=== PATIENT | male | born 1995 | race Hispanic/Latino ===

== ENCOUNTER 2017-11-10 09:00 | Emergency (ER) | payer BC, OTHER, SELFPAY ==
[2017-11-10] MEDS ORDERED: Insulin Regular 300 UNITS/3 ML VIAL ONE (09:09)
[2017-11-10 09:21] LABS: CO2 Tension 181.3 mmHg (35.0-45.0); pH, Arterial 6.67 (7.35-7.45)
[2017-11-10 09:24] LABS: Actual Bicarbonate (HCO3a) 20.3 mEq/L (22-26); Base Excess (BEa) -19.1 mEq/L (0 (+/-) 2.5); Hematocrit-ABG 36.1 % (34.0-44.0); Hemoglobin (Hb) 12.4 g/dL (11.4-15.4); O2 Tension (PaO2) 66.3 mmHg (80.0-100.0)
[2017-11-10 09:25] LABS: Base Excess-Venous -24.1 mmol/L (0 (+/- 2.5)); Bicarbonate (HCO3v) 16.6 mmol/L (1.0-85.0); CO2 Tension (PvCO2) 164.7 mmHg (41.0-51.0); Calcium, Ionized 1.56 mmol/L (1.12-1.32); Hemoglobin - Calc 13.8 g/dL (12.0-18.0); Lactate 15.84 mmol/L (0.50-2.20); Potassium 8.3 mmol/L (3.4-4.7); T. Carbon Dioxide 21.6 mmol/L (1.0-85.0); pH (Venous) 6.611 (7.35-7.45); vO2 Saturation-calc 10.8 % (94-98)
[2017-11-10 09:25] LABS: Analyzer IN Cardio ER; Calcium, Ionized 1.4 mmol/L (1.12-1.30); Puncture Site FEM
[2017-11-10 09:26] LABS: Albumin 2.5 g/dL (3.5-5.0)
[2017-11-10 09:26] LABS: ALV-art Gradient 420.075 (0-20)
[2017-11-10 09:27] LABS: Calcium 11.7 mg/dL (7.8-10.44); Chloride 108 mmol/L (98-107); INR-International Normal Ratio 1.9; Prothrombin Time 22.5 SEC (12.0-14.7); Sodium 146 mmol/L (136-145)
[2017-11-10 09:28] LABS: PTT 101.9 SEC (22.9-36.1)
[2017-11-10 09:29] LABS: Globulin 2.5 g/dL (2.4-3.5)
[2017-11-10 09:30] LABS: Bilirubin, Total 0.3 mg/dL (0.2-1.2)
[2017-11-10 09:35] LABS: Potassium 6.9 mmol/L (3.5-5.1)
[2017-11-10 09:36] LABS: Carbon Dioxide Less than 8 mmol/L (22-29); Glucose 543 mg/dL (70-105)
[2017-11-10 09:43] LABS: ALT (SGPT) 209 U/L (8-55); AST (SGOT) 255 U/L (5-34); Alkaline Phosphatase 70 U/L (Less than 750); BUN (Urea Nitrogen) 16 mg/dL (8.9-20.6); Calc. Creatinine Clearance 0 mL/min (70-130); Estimated GFR-MDRD 50
[2017-11-10 09:44] LABS: Alcohol Less than 10 mg/dL (Less than 10); Lipase 63 U/L (8-78)
[2017-11-10 09:45] LABS: Band 16 % (5-11); Hemoglobin 13.8 g/dL (14.0-18.0); Lymphocytes 47 % (28-48); MDiff Complete? YES; Mean Corpuscular HGB CONC 31.3 g/dL (32.0-36.0); Mean Corpuscular Hemoglobin 29.2 pg (25.0-35.0); Mean Corpuscular Volume 93.1 fl (77.0-87.0); Mean Platelet Volume 10.2 fL (7.4-10.4); Metamyelocyte 2 % (0-0); Monocytes 3 % (0-4); Neutrophil 32 % (31-61); PLT Morphology Comment PLT clumps seen-LOW; Platelet Count 96 thou/uL (130-400); RBC Distribution Width 13.6 % (11.5-14.5); Red Blood Cell (RBC) Count 4.74 mill/uL (4.00-5.20); White Blood Cell (WBC) Count 37.5 thou/uL (4.8-10.8)
--- NOTE | 2017-11-10 09:47 | RAD ---
PORTABLE CHEST: DATE: 11/10/17. TIME: 8:00 a.m. COMPARISON: Comparison is made to an exam performed at 7:44 a.m. FINDINGS: Exam is limited due to poor positioning. The right lateral chest is not included on the film. A left chest tube has been placed since the prior exam. The tip overlies the left apex. A pleural surface is not definitely identified; however, there are no lung markings seen in the perip mayte of the left lung and I cannot exclude a persistent left pneumothorax. ET tube and NG tube are in place. The NG tube has been advanced and the tip now overlies the left up per quadrant. There has been reduction in the gaseous distention of the stomach. IMPRESSION: Overall poor quality of the film. A small peripheral left pneumothorax is not excluded. Recommend f kate. POS: [facility]
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
[2017-11-10 11:55] LABS: Bilirubin Negative (Negative); Blood, Urine Large (Negative); Clarity TURBID (Clear); Glucose, Urine (Dipstick) Negative (Negative); Leukocyte Negative (Negative); Nitrite Negative (Negative); Protein, Urine (Dipstick) 100 mg/dL (Neg-Trace); Specific Gravity, Urine 1.026 (1.002-1.036); Urobilinogen 0.2 mg/dL (0.2-1.0); pH, Urine 5.5 (5.0-9.0)
[2017-11-10] MEDS ORDERED: ISOVUE-370 76%-LOCM 1 ML ONE (11:57)
[2017-11-10 11:58] LABS: Bacteria/HPF 1+ HPF (None Seen); RBC/HPF 21-50 HPF (0-3)
[2017-11-10 12:08] LABS: Hyaline Casts/LPF >50 HYALINE CAST LPF (0-3 Hyaline); Pathc Cast-AUWi Flag 17.53 (0-2.49)
[2017-11-10 12:17] LABS: Other Casts/LPF 0-3 FINELY GRAN LPF (0-3 Hyaline)
[2017-11-10 12:18] LABS: Sperm/HPF 2+ HPF (None Seen)
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
[2017-11-12] MEDS ORDERED: Sodium Bicarb 50 MEQ/50 ML Abboject 8.4% SYRINGE ONE (11:11)
== END 2017-11-10 10:22 | disposition expired ==
LOC: ERS 09:00 → UNDOADMIN 10:00 → CCU 10:00 → ERS 10:22
DX: I46.8 Cardiac arrest due to other underlying condition (principal); J45.909 Unspecified asthma, uncomplicated; E11.9 Type 2 diabetes mellitus without complications; F17.210 Nicotine dependence, cigarettes, uncomplicated; Z23 Encounter for immunization; V89.2XXA Person injured in unspecified motor-vehicle accident, traffic, initial encounter
CPT/HCPCS: 36430; 51702; 70450; 70498; 71045; 71260; 72170; 74177; 80053; 80307; 81003; 81015; 82150; 82330; 82803; 82805; 83605; 83690; 85025; 85610; 85730; 86850; 86900; 86901; 92950; 94002; 94760; 96374; 96375; 96376; 99292; G0390; J1815; P9048